=== PATIENT | male | born 1965 | race Caucasian/White ===

== ENCOUNTER 2021-12-13 16:41 | Outpatient (CLI) | payer BC, SELFPAY ==
--- NOTE | 2021-12-13 17:00 | CRLHL7_ITS ---
For Patients: As a result of the Century Cures Act, medical imaging exams and procedure reports are released immediately into your electronic medical record. You may view this report before your referring provider. If you have questions, please contact your health care provider. INDICATION: RULE OUT DVT, PAIN IN LEFT LOWER LEG TECHNIQUE: Ultrasound venous duplex left lower extremity. COMPARISON: None. FINDINGS: The left common femoral, superficial femoral, deep femoral, popliteal, posterior tibial, and greater saphenous veins are fully compressible normal waveforms. The contralateral right common femoral vein is also compressible with normal waveform. No masses evident. IMPRESSION: Normal ultrasound of the left lower extremity veins. Dictated by: Louis Dunbar MD @ 12/13/2021 18:48:28 (Electronically Signed)
== END 2021-12-13 16:42 | disposition home or self-care (01) ==
LOC: US 16:42
PROVIDERS: PCP Physician Assistant Medical; Visit Provider Physician Assistant Medical
DX: M79.605 Pain in left leg (principal)
CPT/HCPCS: 93971

== ENCOUNTER 2022-07-02 08:23 | Outpatient (CLI) | payer BC, SELFPAY | END 2022-07-02 08:24 | disposition home or self-care (01) | LOC: NFLDREF 13:51 | PROVIDERS: PCP Physician Assistant Medical; Referring Provider Physician Assistant Medical; Visit Provider Physician Assistant Medical | DX: E11.42 Type 2 diabetes mellitus with diabetic polyneuropathy (principal); E78.5 Hyperlipidemia, unspecified; E66.9 Obesity, unspecified; R60.9 Edema, unspecified; Z79.4 Long term (current) use of insulin | CPT/HCPCS: 80053; 80061; 82043; 82570; 84443 ==

== ENCOUNTER 2022-07-03 14:30 | Outpatient (CLI) | payer BC, SELFPAY | END 2022-07-03 14:31 | disposition home or self-care (01) | LOC: NFLDREF 07-04 02:41 | PROVIDERS: PCP Physician Assistant Medical; Referring Provider Physician Assistant Medical; Visit Provider Internal Medicine | DX: E11.9 Type 2 diabetes mellitus without complications (principal); E78.5 Hyperlipidemia, unspecified; E66.9 Obesity, unspecified | CPT/HCPCS: 82043; 82570 ==

== ENCOUNTER 2022-07-13 13:47 | Outpatient (CLI) | payer BC, SELFPAY | END 2022-07-13 13:48 | disposition home or self-care (01) | PROVIDERS: PCP Internal Medicine; Visit Provider Internal Medicine | DX: R60.9 Edema, unspecified (principal) | CPT/HCPCS: 93306 ==

== ENCOUNTER 2023-07-01 16:00 | Outpatient (CLI) | payer BC, SELFPAY | END 2023-07-01 16:01 | disposition home or self-care (01) | PROVIDERS: PCP Internal Medicine; Visit Provider Internal Medicine | DX: E11.9 Type 2 diabetes mellitus without complications (principal); Z79.4 Long term (current) use of insulin | CPT/HCPCS: 80053; 84443 ==

== ENCOUNTER 2024-05-20 07:57 | Outpatient (CLI) | payer BC, SELFPAY | END 2024-05-20 07:58 | disposition home or self-care (01) | PROVIDERS: PCP Internal Medicine; Visit Provider Internal Medicine | DX: Z11.4 Encounter for screening for human immunodeficiency virus [HIV] (principal) | CPT/HCPCS: 86703 ==

== ENCOUNTER 2024-05-21 07:37 | Outpatient (CLI) | payer BC, SELFPAY | END 2024-05-21 07:38 | disposition home or self-care (01) | LOC: NFLDREF 05-23 02:38 | PROVIDERS: PCP Internal Medicine; Referring Provider Internal Medicine; Visit Provider Internal Medicine | DX: Z11.3 Encounter for screening for infections with a predominantly sexual mode of transmission (principal) | CPT/HCPCS: 87491; 87591 ==

== ENCOUNTER 2024-08-05 05:30 | Emergency (ER) | payer BC, SELFPAY ==
--- OUTSIDE RECORDS SUMMARY | 2024-08-05 05:33 | XMS_ITS | Continuity of Care Document ---
Author Organization [place] [facility] Address [address] [place] [address] Assessment Encounter Date Assessment Date Assessment LastModified by Organization Details LastModified Time 06/25/2024 06/25/2024 ASSESSMENT: Patient is a good candidate for conservative care and the prognosis is for a favorable outcome that achieves the patients' goals. We discussed etiology, activity modifications, home care, and other treatment options. Initially, it is recommended that the patient receive in-office treatment 1 times per week for 8 weeks at which time a re-evaluation will be performed to determine an appropriate change in plan. Initially, treatment will focus on joint manipulation to restore range of motion and reduce pain. We will slowly progress to therapeutic exercises and activities to improve function, strength, and stability may also be used as warranted. If the patient is not responding as expected, more invasive procedures will be discussed along with a referral. All considerations above were discussed with the patient and questions answered to satisfaction. If the patient should have any additional questions, or should the condition evolve or worsen, the patient should not hesitate to contact our office. [email or web address] Not available 06/25/2024 18:50:12 Plan of Treatment Reminders Order Date Submit Date Provider Last Modified By Organization Details Last Modified Time Details Appointments None record ed. Lab None record ed. Referral None record ed. Procedures None record ed. Surgeries None record ed. Imaging None record ed. Medication Orders None record ed. Patient TargetsNo targets recorded. Patient InstructionsNo instructions recorded. Reason for Referral None Reported. Problems Name Problem SNOMED Code Status Onset Date Resolution Date Notes Provider Name and Address Organization Details Recorded Time Lumbar segmental dysfunction 389753840 Active 2024 Greg Ortiz DC [address], [place], [address] , [facility] 5 18:50:13 Low back pain 984326853 Active 2024 Greg Ortiz DC [address], [place], [address] , [facility] 5 18:50:13 Thoracic segmental dysfunction 644496250 Active 2024 Not Available [facility] 11:43:18 Somatic dysfunction of sacral spine 160663395 Active 2024 Greg Ortiz DC [address] [place] [address], [place], [address] , [facility] 18:50:13 Problem Notes None recorded. Procedures Surgical History Date Name Laterality Status Provider Name and Address Organization Details Recorded Time 01632: Spinal manipulation , 3 to 4 regions completed Greg Ortiz DC [address] [place] [address], [place], [address], [facility] 06/25/2024 18:50:13 Imaging Results None recorded. Procedure Notes None recorded. Medical Equipment None Reported. Vitals None Recorded Social History None recorded. Functional Status None recorded. Mental Status None recorded. Family History Nothing Reported. Medical History No medical history recorded. Past Encounters Encounter ID Performer Location Encounter Start Date Encounter Closed Date Diagnosis/Indication Diagnosis SNOMED-CT Code Diagnosis ICD10 Code Diagnosis Note [id number] Greg Ortiz DC [facility] [address] [place] [address] [place] [address] 06/25/2024 17:23:34 06/26/2024 18:30:05 Lumbar segmental dysfunction 690446399 M99.03 Low back pain 971482195 M54.50 Somatic dy sfunction of sacral spine 836610213 M99.04 Thoracic s egmental dysfunction 947485740 M99.02 Health Concerns Section Related Observation LastModified by Organization Detai ls LastModified Time None Recorded Concern Status LastModified by Organization Details LastModified Time None Recorded Payers Encounter Date Sequence Insurance Name Policy Number Policy Carrizales Covered Member ID Carrizales Member ID Guarantor Name 06/25/2024 1 [place] [id number] Martínez Morales [id number] Martínez Morales Notes Date Note Type Note Provider Name and Address Organization Details Recorded Time 06/25/2024 text/html HPI - Lumbar SpineReported bypatient.Location: left; With radiation to knee Quality:aching Severity:not changing Timing:morning Aggravating Factors:standing Alleviating Factors:ice Scot Olu Ortiz DC [address], [place], [address], [facility] 06/25/2024 18:50:37
--- OUTSIDE RECORDS SUMMARY | 2024-08-05 05:33 | XMS_ITS | Data Portability ---
Author Organization [place] - [facility] Address [address] [place] [address] Assessment Encounter Date Assessment Date Assessment LastModified [...] Organization Details Recorded Time Lumbar segmental dysfunction 202550542 Active 2024 Greg Ortiz DC [address], [place], [address] , [facility] 5 18:50:13 Low back pain 959202675 Active 2024 Greg Ortiz DC [address], [place], [address] , [facility] 5 18:50:13 Thoracic segmental dysfunction 932979321 Active 2024 Not Available [facility] 11:43:18 Somatic dysfunction of sacral spine 512767042 Active 2024 Greg Ortiz [address], [place], [address] , [facility] 5 18:50:13 Problem Notes None recorded. Procedures Surgical History Date Name Laterality Status Provider Name and Address Organization Details Recorded Time 95052: Spinal manipulation , 3 to 4 regions completed Greg Ortiz DC [address] [place] [address], [place], [address], [facility] 06/25/2024 18:50:13 Imaging Results None recorded. Procedure Notes None recorded. Medical Equipment None Reported. Vitals None Recorded Social History None recorded. Functional Status None recorded. Mental Status None recorded. Family History Nothing Reported. Medical History No medical history recorded. Past Encounters Encounter ID Performer Location Encounter Start Date Encounter Closed Date Diagnosis/Indication Diagnosis SNOMED-CT Code Diagnosis ICD10 Code Diagnosis Note [id number] Greg Ortiz DC [facility] [address] [place] [address] [place] [address] 06/25/2024 17:23:34 06/26/2024 18:30:05 Lumbar segmental dysfunction 035853129 M99.03 Low back pain 327593753 M54.50 Somatic dy sfunction of sacral spine 426860294 M99.04 Thoracic s egmental dysfunction 233794753 M99.02 Health Concerns Section Related Observation LastModified by Organization Detai ls LastModified Time None Recorded Concern Status LastModified by Organization Details LastModified Time None Recorded Advance Directives Directive None Recorded Payers Encounter Date Sequence Insurance Name Policy Number Policy Carrizales Covered Member ID Carrizales Member ID Guarantor Name 06/25/2024 1 [place]UN [place] ([place]) [id number] Martínez Morales [id number] Martínez Morales Notes Date Note Type Note Provider Name and Address Organization Details Recorded Time 06/25/2024 text/html HPI - Lumbar SpineReported bypatient.Location: left; With radiation to knee Quality:aching Severity:not changing Timing:morning Aggravating Factors:standing Alleviating Factors:ice Greg Ortiz DC [address], [place], [address], [facility] 06/25/2024 18:50:37
--- OUTSIDE RECORDS SUMMARY | 2024-08-05 05:34 | XMS_ITS | Continuity of Care Document ---
Author Organization [facility] actice Address [address] [address] Phone Care Team Providers Care Pcmh Specialist Name Role Phone Cleopatra [facility] Max KINCAID Unavailable Unava ilable Allergies, Adverse Reactions, Alerts Substance Reaction Status Criticality No Known Allergies Active No Inform ation Medications Medication Instructions Dosage Effective Dates (start - stop) Status Comments LOSARTAN POTASSIUM 50 MG TAB TAKE 1 TABLET BY ORAL ROUTE EVERY DAY 50 MG - Active PAXIL 20 MG TABLET TAKE 1 TABLET BY MOUTH EVERY DAY 20 MG - Active WELLBUTRIN XL 300 MG TABLET TAKE 1 TABLET BY MOUTH EVERY DAY 300 MG - Active Farxiga 10mg ORAL TABLET Take one tablet by mouth daily - Active METFORMIN HCL 500 MG TABLET TAKE 2 TABLETS BY MOUTH TWICE A DAY WITH MORNING AND EVENING MEAL 1000 MG - Active PRAVASTATIN SODIUM 40 MG TAB TAKE 1 TABLET BY MOUTH EVERY DAY 40 MG - Active One Touch Ultra System Kit Use as directed to test blood sugar - Active One Touch Ultra Test Strips Test blood sugar daily - Active One Touch Delica Lancets 33 gauge Test blood sugar daily - Active Lancets,Thin as directed - Active Zithromax Z-Kings 250 mg tablet take 2 tablet by oral route every day for 1 day then 1 tablet (250 mg) by oral route once daily for 4 days 500 MG - No Longer Active Medrol (Kings) 4 mg tablets in a dose pack Take as directed - No Longer Active doxycycline hyclate 100 mg tablet take 1 tablet by oral route 2 times every day 100 MG - No Longer Active Procedures Procedure Date Chest x-ray, two views RUBY PAST TIMELY FILING Echo Complete All Dopplers Office/outpatient visit,est, mod 2014 Chest x-ray, two views Office/outpatient visit,est, mod 2014 Assay, blood testosterone-L No Charge No Charge General health panel Venipuncture Lipid profile Glycosylated hemoglobin assay 5 Office/outpatient visit,est, mod 2013 Office/outpatient visit,est, mod 2013 Office/outpatient visit,est, mod 2013 Assay, Vitamin B-12 General health panel Glycosylated hemoglobin assay 4 Lipid profile No Charge No Charge Venipuncture Assay, fibrin degradation products Assay thyroid stimulating hormone Venipuncture Metabolic panel, comprehensive 14 Assay CPK in blood Assay, blood magnesium Assay creatine, MB fraction NATRIURETIC PEPTIDE (BNP) Assay, troponin, quantitative 4 Chest x-ray, two views Office/outpatient visit,est, mod 2013 EKG Infct antigen, influenza Office/outpatient visit,est, mod 2013 Office/outpatient visit,est, mod 2012 Venipuncture Metabolic panel, comprehensive 13 Automated hemogram (CBC)L Glycosylated hemoglobin assay 3 Office/outpatient visit,est, mod 2012 Venipuncture Metabolic panel, comprehensive 13 Automated hemogram (CBC)L Glycosylated hemoglobin assay 3 Office/outpatient visit,est, mod 2012 Office/outpatient visit,est, mod 2012 Rocephin 250 Mg Chest x-ray, two views Office/outpatient visit,est, mod 2012 Ft arch suprt premold longit Office/outpatient visit,est, mod 2012 Venipuncture Assay, blood testosterone-L Lipid profile Glycosylated hemoglobin assay 3 Office/outpatient visit,est, mod 2011 Office/outpatient visit,est, mod 2011 Assy, albumin, urine microalbm jose d-L Au Lipid profile No Charge Glycosylated hemoglobin assay 2 General health panel Venipuncture No Charge Assay, blood testosterone-L Assay, blood testosterone-L Assy, albumin, urine microalbm jose d-L Au Office/outpatient visit,new, mod 2011 Advance Directives Directive Yes / No Effective Date File Name No Information Encounters Encounter Description Practice Location Reason(s) For Visit Diagnoses Date Provider Providers Copied on Encounter [facility], [address] [facility], [place], [place], [id number], tel:[phone] ICC X Ray No Information 5 Cleopatra Santana. [address], [place], [place], [id number], [place]. tel:[phone] Referring Provider: Greg Sheth, [address] [facility], [place], [address]. tel:[phone] [facility], [address], [place], [place], [id number], tel:[phone] [facility] Cough (chief complaint) No Information 0 5 King Greg. [address] [place], [id number], [place]. tel:[phone] Referring Provider: Greg Sheth, [address], [place], [address]. tel:[phone] [facility], [address] [facility] [address] [place] [address], [id number], tel:[phone] [facility] No Information 3 5 King Greg. [address] [place], [id number], [place]. tel:[phone] Referring Provider: Greg Sheth, [address], [place], [address]. tel:[phone] [facility], [address] [facility] [address] [place] [address], [id number], tel:[phone] [facility] No Information 5 King Greg. [address] [place], [id number], [place]. tel:[phone] Referring Provider: Greg Sheth, [address], [place], [address]. tel:[phone] [facility], [address] [facility] [address] [place] [address], [id number], [place] tel:[phone] [facility] No Information 5 Cleopatra Santana. [address], [address] [facility], [place], [place], [id number], . tel:[phone] Referring Provider: Marshall Bustos MD, [address] [facility], [place], [address]. tel:[phone] Office/outpa tient visit,[facility], [address] [facility] [address] [place] [address], [id number], [place] tel:[phone] [facility] Follow Up of Hyperlipidem ia (chief complaint)co ugh (chief complaint) Unspecified essential hypertension Other and unspecified hyperlipidem iaUnspecifie d sleep apneaCoughDi abetes Mellitus Type 2, Uncomplicate d 5 King Greg. [address] [place] [address], [id number], [place]. tel:[phone] Referring Provider: Greg Sheth, [address] [place] [address], [address]. tel:[phone] [facility], [address] [facility] [address] [place] [address], [id number], tel:[phone] [facility] X Ray No Information 5 Cleopatra Santana. [address] [facility] [address] , [address] [place] [address], [id number], [place]. tel:[phone] Referring Provider: Greg Sheth, [address] [place] [address], [address]. tel:[phone] Office/outpa tient visit,[facility], [address] [place] [address], [id number], tel:[phone] [facility] Cough (chief complaint) Bronchitis, Acute 5 Kvng Macias. [address], [place], [place], [id number], [place]. [phone] Referring Provider: Colleen Ordonez, [address], [place], [address]. tel:[phone] [facility], [address] [place] [address], [id number], [place] tel:[phone] [facility] WO CMP NT ST UNCNTRLONG-T ERM USE MEDS [facility] 5 King Greg. [address] [place], [place], [id number], [place]. tel:[phone] Referring Provider: Greg Sheth, [address] [place], [address]. tel:[phone] Office/outpa tient visit,est, [facility], [address] [place] [address], [id number], [place] tel:[phone] [facility] Cough (chief complaint) Bronchitis, Acute 4 Kvng Macias. [address], [place], [place], [id number], [place]. tel:[phone] Referring Provider: Colleen Ordonez, [address], [place], [address]. [phone] Office/outpa tient visit,est, [facility], [address] [place] [address], [id number], [place] tel:[phone] [facility] Cold symptoms (chief complaint) Skin lesionAllerg ic rhinitis 4 King Greg. [address] [place], [id number], [place]. tel:[phone] Referring Provider: Greg Sheth, [address] [place], [address]. tel:[phone] [facility], [address] [place] [address], [id number], [place] tel:[phone] [facility] No Information 4 King Greg. [address] [place], [id number], [place]. tel:[phone] Referring Provider: Greg Sheth, [facility] [place], [address]. tel:[phone] Office/outpa tient visit,est, mod [facility], [address] [facility] [address] [place] [address], [id number], [place] tel:[phone] [facility] Follow Up of hyperlipidem ia (chief complaint) Diabetes Mellitus Type 2, Uncomplicate dHypovitamin osis D 4 King Greg. [facility] [place], [place], [id number], [place]. tel:[phone] Referring Provider: Greg Sheth, [address] [place] [address], [address]. tel:[phone] [facility], [address] [facility] [address], [id number], [place] tel:[phone] [facility] e DMII WO CMP UNCNTRLDHYPE RLIPIDEMIA NEC/NOSHYPER TENSION NOS 4 King Greg. [address] [place] [address], [id number], [place]. tel:[phone] Referring Provider: Greg Sheth, [address] [place] [address], [address]. tel:[phone] [facility], [address] [facility] [address] [place] [address], [id number], [place] tel:[phone] [facility] SHORTNESS OF BREATH 4 King Greg. [address] [place] [address], [id number], [place]. tel:[phone] Referring Provider: Greg Sheth, [address] [place] [address], [address]. tel:[phone] [facility], [address] [place] [address], [id number], [place] tel:[phone] [facility] X Ray No Information 4 Cleopatra Santana. [address], [place], [place], [id number], [place]. tel:[phone] Referring Provider: Greg Sheth, [address] [facility] [place], [address]. tel:[phone] Office/outpa tient visit,est, [facility], [address] [facility] [address] [place] [address], [id number], [place] tel:[phone] [facility] SOA (chief complaint) DyspneaCough Chest Tightness 4 King Greg. [facility] [place], [id number], [place]. tel:[phone] Referring Provider: Greg Sheth, [address] [place], [address]. tel:[phone] [facility], [address] [facility] [address] [place] [address], [id number], [place] tel:[phone] [facility] Brematthias hartmann COUGH 4 King Greg. [address] [place], [id number], [place]. tel:[phone] Referring Provider: Greg Sheth, [address] [place], [address]. tel:[phone] Office/outpa tient visit,est, [facility], [address] [place] [address] e [facility] [address] [place] [address], [id number], [place] tel:[phone] [facility] cough (chief complaint) Bronchitis, Acute 4 King Greg. [address] [place], [id number], [place]. tel:[phone] Referring Provider: Greg Sheth, [address], [place], [address]. tel:[phone] Office/outpa tient visit,est, mod [facility], [address], [place], [place], [id number], [place] tel:[phone] [facility] DM/lipids (chief complaint) Diabetes Mellitus, Adult Onset, Uncontrolled HYPERLIPIDEM IA NEC/NOSHyper tension, Unspecified Dec-0 3 King Greg. [address] [place], [place], [id number], [place]. tel:[phone] Referring Provider: Greg Sheth, [address], [place], [address]. tel:[phone] [facility], [address], [place], [place], [id number], [place] tel:[phone] [facility] [address] HYPERLIPIDEM IA NEC/NOSHYPER TENSION NOSDMII WO CMP UNCNTRLD 3 King Greg. [address] [place], [place], [id number], [place]. tel:[phone] Referring Provider: Greg Sheth, [address], [place], [address]. tel:[phone] [facility], [address], [place], [place], [id number], [place] tel:[phone] [facility] Hypertension , UnspecifiedH YPERLIPIDEMI A NEC/NOSDiabe scooter Mellitus, Adult Onset, Uncontrolled 3 King Greg. [address] [place], [place], [id number], [place]. tel:[phone] Referring Provider: Greg Sheth, [address] [place], [address]. tel:[phone] Office/outpa tient visit,est, [facility], [address] [place] [address] [address] [place] [address], [id number], tel:[phone] [facility] DM/lipids (chief complaint) Hypertension , UnspecifiedH YPERLIPIDEMI A NEC/NOSDiabe scooter Mellitus Type 2, Uncomplicate dObesity, Morbid 3 3 King Greg. [address] [place], [place], [id number], [place]. tel:[phone] Referring Provider: Greg Sheth, [address] [place] [address], [address]. tel:[phone] [facility], [address] [facility] [address] [place] [address], [id number], [place] tel:[phone] [facility] HYPERLIPIDEM IA NEC/NOSDMII WO CMP UNCNTRLD 3 King Greg. [address] [place], [place], [id number], [place]. tel:[phone] Referring Provider: Greg Sheth, [address] [place] [address], [place], [address]. tel:[phone] [facility], [address] [place], [place] [address]te [address] [place] [address], [id number], [place] tel:[phone] [facility] Diabetes Mellitus, Adult Onset, Uncontrolled HYPERLIPIDEM IA NEC/NOSHyper tension, Unspecified 3 King Greg. [address] [place], [place], [id number], [place]. tel:[phone] Referring Provider: Greg Sheth, [address] [place] [address], [address]. tel:[phone] Office/outpa tient visit,est, [facility], [address] [place] [address], [id number], [place] tel:[phone] [facility] upper respiratory infection (chief complaint) Upper Respiratory Infection, AcuteDiabete s Mellitus Type 2, Uncomplicate d 3 King Greg. [address] [place], [place], [id number], [place]. tel:[phone] Referring Provider: Greg Sheth, [facility] [place], [address]. tel:[phone] Office/outpa tient visit,[facility], [address] [facility] [address] [place] [address], [id number], [place] tel:[phone] [facility] bad cough (chief complaint) DyspneaBronc hitis, Acute 3 King Greg. [address] [place], [place], [id number], [place]. tel:[phone] Referring Provider: Greg Sheth, [address] [facility], [place], [address]. tel:[phone] [facility], [address] [facility] [address] [place] [address], [id number], tel:[phone] [facility] X Ray No Information 3 Cleopatra Santana. [address] [place] [address], [id number], [place]. tel:[phone] Referring Provider: Greg Sheth, [address] [place], [address]. tel:[phone] Office/outpa tient visit,[facility], [address] [facility] [address] [place] [address], [id number], [place] tel:[phone] [facility] left heel pain (chief complaint) PLANTAR FIBROMATOSIS DERMATOPHYTO SIS OF FOOTDiabetes Mellitus Type 2, Uncomplicate d 3 Jalen Grier. [address] [place] [address], [id number], [place]. [phone] Referring Provider: Cherrie Narayan, [address] [place] [address], [address]. tel:[phone] [facility], [address] [place], [place] [address] [address] [place] [address], [id number], [place] [phone] [facility] No Information 3 King Greg. [address] [place], [place], [id number], [place]. [phone] Office/outpa tient visit,est, mod [facility], [facility] [address] [facility] [address] [place] [address], [id number], [place] tel:[phone] [facility] hypertension (chief complaint)DM /lipids (chief complaint) Hypertension , UnspecifiedH YPERLIPIDEMI A NEC/NOSDMII NEURO UNCNTRLDBron hiltonis, [facility] 3 King Greg. [address] [place], [place], [id number], [place]. tel:[phone] Referring Provider: Greg Sheth, [address] [facility], [place], [address]. tel:[phone] [facility], [facility] [address] [place] [address], [id number], [place] tel:[phone] [facility] [address] HYPERLIPIDEM IA NEC/NOSDMII WO CMP UNCNTRLD 3 King Greg. [address] [place], [place], [id number], [place]. tel:[phone] Referring Provider: Greg Sheth, [address] [place], [address]. tel:[phone] Office/outpa tient visit,[facility], [address] [place] [address], [id number], tel:[phone] [facility] No Information 2 Pope Micky. [address] [place] [address], [id number], [place]. tel:[phone] Referring Provider: Greg Sheth, [address] [place] [address], [address]. [phone] Office/outpa tient visit,[facility], [address] [place] [address], [id number], tel:[phone] [facility] hypertension (chief complaint)DM /lipids (chief complaint) Hypertension , UnspecifiedH YPERLIPIDEMI A NEC/NOSDiabe scooter Mellitus, Adult Onset, Uncontrolled Sleep Apnea, ObstructiveC ORNS AND CALLOSITIES 2 King Greg. [address] [place], [place], [id number], [place]. tel:[phone] Referring Provider: Greg Sheth, [address] [place], [address]. tel:[phone] [facility], [address] [place] [address], [id number], [place] tel:[phone] [facility] Diabetes Mellitus, Adult Onset, Uncontrolled HYPERLIPIDEM IA NEC/NOSHyper tension, UnspecifiedA bnormal Liver Enzymes 2 King Greg. [address] [place], [id number], [place]. tel:[phone] Referring Provider: Greg Sehth, [address] [place] [address], [place], [address]. tel:[phone] [facility], [address] [facility] [address] [place] [address], [id number], [place] [phone] [facility] [address] DMII WO CMP UNCNTRLDHYPE RLIPIDEMIA NEC/NOSHYPER TENSION NOS King Greg. [address] [place], [place], [id number], [place]. tel:[phone] Referring Provider: Greg Sheth, [address] [place], [address]. tel:[phone] [facility], [address] [facility] [address] [place] [address], [id number], [place] tel:[phone] [facility] DMII WO CMP UNCNTRLDHYPE RLIPIDEMIA NEC/NOSHYPER TENSION NOS King Greg. [address] [place], [place], [id number], [place]. [phone] Referring Provider: Greg Sheth, [address] [place] [address], [address]. tel:[phone] [facility], [address] [place], [place] [address]te [address] [place] [address], [id number], [place] [phone] [facility] Care HYPERLIPIDEM IA NEC/NOSDiabe scooter Mellitus, Adult Onset, Uncontrolled DepressionHy pertension, Unspecified King Greg. [address] [place], [place], [id number], [place]. [phone] Referring Provider: Greg Sheth, [address] [place] [address], [address]. [phone] Office/outpa tient visit,new, mod [facility], [address] [facility], [place], [place], [id number], [place] tel:[phone] [facility] new patient visit (chief complaint) Hypertension , UnspecifiedH YPERLIPIDEMI A NEC/NOSDiabe scooter Mellitus, Adult Onset, Uncontrolled Sleep Apnea, ObstructiveD epressionHyp ertension, UnspecifiedH YPERLIPIDEMI A NEC/NOSDiabe scooter Mellitus Type 2, Uncomplicate dSleep Apnea, Obstructive 2 King Greg. [address] [place], [place], [id number], [place]. tel:[phone] Referring Provider: Greg Sheth, [address] [facility], [place], [address]. tel:[phone] Family History Family Member Type Diagnosis Age At Onset Mother Problem (finding) hypertension Maternal grandmother Problem (finding) Diabetes mellit us Immunizations Vaccine Date Status Comments PPV23 administered Source: New Imm unization Record Influenza vaccine cancelled Source: Ne w Immunization Record Influenza vaccine cancelled Source: Ne w Immunization Record Pneumo (2 yrs or older) (PPV23) pending Source: New Immuniza tion Record Payers Payer name Insurance type Covered green party ID Authoriza tion(s) Chana SHERMAN [id number] Social History Type Description Quantity Date Captured Comments Sex Male Smoking Status No Information Chief Complaint And Reason For Visit No Information Reason For Referral Reason For Referral No Information Plan Of Treatment Date Type Action Status Goal Pneumococcal Vaccine due Goal AST. Due on due Goal PSA. Due on due Goal TD Vaccine. Due on 15 due Goal H&P. Due on due Goal Depression screening. Due on due Goal Tdap. Due on due Goal Influenza vaccine. Due on due Goal ALT. Due on due Goal H&P. Due on due Goal Lipid Panel. Due on 014 due Goal AST. Due on due Goal TD Vaccine. Due on due Goal PSA. Due on due Goal TD Vaccine. Due on due Goal H&P. Due on due Goal ALT. Due on due Goal Lipid Panel. Due on due Goal AST. Due on due Goal PSA. Due on due Goal H&P. Due on due Goal PSA. Due on due Goal ALT. Due on due Goal TD Vaccine. Due on due Goal AST. Due on due Goal Lipid Panel. Due on due Goal TD Vaccine. Due on due Goal H&P. Due on due Goal ALT. Due on due Goal Lipid Panel. Due on due Goal AST. Due on due Goal TD Vaccine. Due on due Goal AST. Due on due Goal Lipid Panel. Due on due Goal ALT. Due on due Goal H&P. Due on due Goal TD Vaccine. Due on due Goal H&P. Due on due Goal H&P. Due on due Goal TD Vaccine. Due on due Goal TD Vaccine. Due on 13 due Goal H&P. Due on due Goal Lipid Panel. Due on 013 due Goal PSA. Due on due Goal ALT. Due on due Goal AST. Due on due Goal Colonoscopy. Due on 011 due Goal TD Vaccine. Due on 13 due Goal H&P. Due on due Goal Pneumococcal Vaccine. Due on due Unknown Immunization Pneumo (2 yrs or older) (PPV 23) ordered Future Order: Lab Order Complete Blood Count (CBC), Collected on: , Sent on: Sent Future Order: Lab Order Comprehe nsive Metabolic Panel (CMP), Collected on: , Sent on: Sent Future Order: Lab Order Lipid Pa julia (LIPID), Collected on: , Sent on: Sent Future Order: Lab Order Microalb umin (UMALB), Collected on: , Sent on: Sent Future Order: Lab Order Hemoglob in A1c (A1C), Collected on: , Sent on: Sent Future Order: Lab Order TSH (TSH ), Appointment on: , Sent on: Sent Future Order: Lab Order Complete Blood Count (CBC), Appointment on: , Sent on: Sent Future Order: Lab Order Comprehe nsive Metabolic Panel (CMP), Appointment on: , Sent on: Sent Future Order: Lab Order Hemoglob in A1c (A1C), Appointment on: , Sent on: Sent History Of Present Illness Encounter Date Complaint History Of Ese nt Illness Cough Follow Up of Hyperlipidemia The diabetes is controlled. The hyperlipidemia is controlled. Risk factors include age over 50, family history of DM, obesity, poor diet and sedentary life style. The patient is adhering to medication, follow-up, diet and exercise for their hyperlipidemia. The patient is adhering to medication, follow-up, diet and exercise for their diabetes management. The patient is managing diabetes with diet, fingerstick blood sugars, injected insulin and oral medication. Hyperlipidemia management includes improved diet, increased exercise and statins. Pertinent negatives include chest pain, claudication, constant hunger, constipation, diaphoresis, diarrhea, dizziness, dysesthesias, dyspnea, excessive thirst, foot ulcer, frequent infections, heartburn, hematuria, hypoglycemic episodes, impotence/erectile dysfunction, increased fatigue, joint pain, myalgia, nausea, nocturia, palpitations, polydipsia, polyuria, rash, slow healing, transient weakness, vision loss,'+ vomiting, weight gain and weight loss. Additional information: BP ontrolled, no weight loss, low salt diet, NAFLD, morbidly obese. cough Onset: 6 months ago. Severity: moderate. The patient describes the cough as hacking and persistent. It occurs persistently. The problem has not changed. There are no aggravating factors. There are no relieving factors. Associated symptoms include cough. Pertinent negatives include chills, dyspnea, dyspnea on exertion, epistaxis, fatigue, fever, heartburn, hemoptysis, hoarseness, nasal congestion, night sweats, pleuritic pain, post-nasal drainage, rhinitis, rhinorrhea, sinus pressure, sore throat, weight loss and wheezing. The patient does not have a history of allergies or asthma. Additional information: no rreflux symptoms. Cough Onset: 4 days ag o. The patient describes the cough as hacking and productive (of green sputum). It occurs persistently. The problem has become gradually worse. There are no aggravating factors. There are no relieving factors. Associated symptoms include chills, cough, dyspnea on exertion, fatigue, nasal congestion, post-nasal drainage, rhinitis, rhinorrhea and sinus pressure. Pertinent negatives include dyspnea, fever, sore throat and wheezing. Cough The patient desc ribes the cough as productive (of green sputum). It occurs persistently. The problem has become gradually worse. Context: allergies. Symptoms are aggravated by lying down. There are no relieving factors. Associated symptoms include cough, dyspnea, fatigue, hoarseness, rhinorrhea and sore throat. Pertinent negatives include chills, dyspnea on exertion, epistaxis, fever, heartburn, hemoptysis, nasal congestion, night sweats, pleuritic pain, post-nasal drainage, rhinitis, sinus pressure, weight loss and wheezing. Cold symptoms Onset: 2 weeks a go. Severity: mild-moderate. The patient describes the cough as moist and productive (of clear sputum). It occurs persistently. The problem has become gradually worse. There are no aggravating factors. There are no relieving factors. Associated symptoms include cough, dyspnea, dyspnea on exertion, fatigue, nasal congestion and post-nasal drainage. Pertinent negatives include chills, fever and hoarseness. The patient does not have a history of allergies or asthma. Additional information: Possibly has allergies also has lesion on scrotum. Follow Up of hyperlipidemia The diabetes is controlled. The hyperlipidemia is controlled. Risk factors include family history of DM, obesity, poor diet and sedentary life style. The patient is adhering to medication and follow-up for their hyperlipidemia. The patient is not adhering to diet and exercise for their hyperlipidemia. Other hyperlipidemia compliance information: {hpi_[email or web address]_compliance_oth er1} The patient is adhering to medication and follow-up for their diabetes management. The patient is not adhering to diet, exercise for their diabetes management. Other DM compliance information: {hpi_hyperlipidemia_DM_.txt_compliance_oth er2}. The patient is managing diabetes with diet and oral medication. Patient reports home glucose readings as an average of {home_glucose_mr_.glucAve}, a maximum of {home_glucose_mr_.glucMax} and a minimum of {home_glucose_mr_.glucMin}. Hyperlipidemia management includes improved diet, increased exercise and statins. Pertinent negatives include chest pain, claudication, constant hunger, constipation, diaphoresis, diarrhea, dizziness, dysesthesias, dyspnea, excessive thirst, foot ulcer, frequent infections, heartburn, hematuria, hypoglycemic episodes, impotence/erectile dysfunction, increased fatigue, joint pain, myalgia, nausea, nocturia, palpitations, polydipsia, polyuria, rash, slow healing, transient weakness, vision loss,'+ vomiting, weight gain and weight loss. Additional information: Bydureon SC weekly, BP conrolled, low salt diet and no EtOH. SOA SOA (comments) He has no more p urulent sputum but he still has thick white sputum and SOA and some chest ache or pressure. Cough is congested. He has T2DM but never a smoker. He is morbidly obese. cough Onset: 1 week ag o. Severity: mild-moderate. The patient describes the cough as moist and productive (of yellow sputum). It occurs persistently. The problem has become gradually worse. There are no aggravating factors. Relieving factors include OTC cough syrup. Associated symptoms include cough, fatigue and nasal congestion. Pertinent negatives include chills, dyspnea, dyspnea on exertion, epistaxis, fever, heartburn, hemoptysis, hoarseness, night sweats, pleuritic pain, post-nasal drainage, rhinitis, sinus pressure, sore throat, weight loss and wheezing. The patient does not have a history of allergies or asthma. DM/lipids Associated sympt oms include weight gain. Pertinent negatives include fatigue, pain and weight loss. Home blood pressure range is 140 systolic and 90 diastolic. DM/lipids (comments) 02/18 A1C 8 .1, he is on and off his meds and he is off his diet and he is not taking his BS at home at all. He is due for Opth visit. He denies any foot problems. Functional Status Date Functional Assessmen t No Information Instructions Date Instruction Additional Infor cassandra Increase Farxiga to 10mg daily. Check fasting home BS and record for your next visit. Maintain an ADA diet. Maintain an healthy weight. Maintain a cardiovascular exercise program. Follow up in 6 months with repeat routine blood work. Related to Diabetes Mellitus Type 2, Uncomplicated Doxycycline, Medrol, Mucinex, Pulmonary consult Related to Cough CPAP discussed Related to Unspe cified sleep apnea Continue current reg imen. follow a Low salt diet, maintain a healthy weight, maintain a cardiovascular exercise program, BP checks 2-3 x per week and bring record to next visit. Follow up in 6 months with repeat routine laboratory work up. Related to Unspecified essential hypertension Continue current reg imen. Follow a low cholesterol and low fat diet such as the Mediterranean diet. Maintain a healthy weight. Maintain a cardiovascular exercise program. Follow up in 6 months with routine laboratory work up. Related to Other and unspecified hyperlipidemia Treat with ceftin 50 0mg BID x 7 days. Recommend mucinex otc. Related to Bronchitis, Acute Treat with augmentin 875mg BID for 10 days. Recommend mucinex otc. Related to Bronchitis, Acute Vit D2 [id number] iu biw x 3 months R elated to Hypovitaminosis D Continue current reg imen and add Farxiga 5 mg daily. Check fasting home BS and record for your next visit. Maintain an ADA diet. Maintain an healthy weight. Maintain a cardiovascular exercise program. Follow up in 6 months with repeat routine blood work. Related to Diabetes Mellitus Type 2, Uncomplicated Probable AR, Nasonex bid and Zyrtec daily otc, FU prn or next routine visit Related to Allergic rhinitis probably due to skin folds, will try triple antibiotics first bid, FU if it doesn't clear up Related to Skin lesion Flu swab sent Related to Bron hitis, Acute Flu swab sent Related to Bron hitis, Acute Continue current medication Reviewed medications Follow exercise program Continue current medication Reviewed medications Take new medication as prescribe d Follow exercise program Continue current medication Reviewed medications Take new medication as prescribe d Continue current medication Reviewed medications Take new medication as prescribe d Follow exercise program Continue current medication Reviewed medications Follow exercise program Continue current medication Reviewed medications Follow exercise program Assessments Type Assessment Date No Information Patient Care Teams Name Effective Dates (start - stop) Status Members No Information
[2024-08-05 05:39] VITALS: BP 182/99; PULSE 75; PULSE 89; RESP 14; RESP 18; TEMP 36.8; O2SAT 99; BMI 35.3
--- NOTE | 2024-08-05 05:42 | ED_ITS ---
HPI - General Adult General Date Seen: 08/05/24 Chief complaint: Back Injury/Pain Stated complaint: tight chest, pain on center back Time Seen by Provider: 08/05/24 05:34 Source: patient Mode of arrival: ambulatory Limitations: no limitations History of Present Illness HPI narrative: Patient is a 59-year-old male history of diabetes had a benefit anemia presenting to the emergency department for back pain, left arm pain, head pain. Symptoms have been on and off for the past week. States that they dull ache located in the gets sharp in his upper mid back with some dull ache in his [address]. States the might be some mild pressure in the chest but hard to say definitively. No associated shortness of breath. Pain radiates to his left arm. Does not radiate up the jaw. No history of heart disease. Did have an episode lightheadedness about a week ago that lasted about 10 minutes. No further episodes of lightheadedness. Has never had symptoms like this before prior to this past week. Denies any lower extremity swelling. Denies any fevers, chills, headache, dizziness, abdominal pain. The pain came back overnight the he decided to come in to get checked out. No other concerns noted Related Data Home Medications ?Medication ?Instructions ?Recorded ?Confirmed albuterol sulfate 90 mcg/actuation 2 inhalation PRN 12/08/21 06/16/24 aerosol inhaler rosuvastatin 20 mg tablet 20 mg PO .Bedtime 12/08/21 06/16/24 Previous Rx's ?Medication ?Instructions ?Recorded lancets #100 ea 03/05/22 duloxetine 60 mg capsule,delayed 60 mg PO QDAY #90 caps 03/03/24 release blood-glucose meter (Contour Next #1 ea 03/30/24 EZ Meter kit) glipizide 10 mg tablet, extended 10 mg PO BID #180 tabs 06/08/24 release 24 hr metformin 500 mg tablet,extended 1,000 mg (2 x 500 mg) PO DAILY 06/08/24 release 24 hr #180 tabs semaglutide 1 mg/dose (4 mg/3 mL) 1 mg (0.75 mL) subcut QWEEK #3 mL 06/14/24 subcutaneous pen injector (Ozempic) blood sugar diagnostic (Contour #100 strips 06/16/24 Next Test Strips) tadalafil 10 mg tablet (Cialis) 10 mg PO QDAY #90 tabs 06/30/24 Allergies Allergy/AdvReac Type Severity Reaction Status Date / Time No Known Drug Allergies Allergy Verified 08/05/24 05:43 Review of Systems Status of ROS: Reports: 10 or more systems reviewed and unremarkable except as noted in History and below PFSH [facility] Medical History BPH (benign prostatic hyperplasia) ?N40.0 - Benign prostatic hyperplasia without lower urinary tract symptoms (ICD-10) Screening due ?Z13.9 - Encounter for screening, unspecified (ICD-10) History of essential hypertension ?Z86.79 - Personal history of other diseases of the circulatory system (ICD- 10) History of depression ?Z86.59 - Personal history of other mental and behavioral disorders (ICD-10) Surgical History History of tympanostomy (1965) ?Z98.890 - Other specified postprocedural states (ICD-10) History of cholecystectomy (2002) ?Z90.49 - Acquired absence of other specified parts of digestive tract (ICD- 10) Family History Mother Depression Anxiety Paternal Grandfather Diabetes Social History Narrative: , 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, no kids, does not exercise, non smoker, social drinker 1/week What is your current living situation?: I presently have a place to live Problems where you live: no known problems In the past 12 months, utilities in danger of being shut off: no In past 12 months, lack of transportation kept you from medical appts, meetings, work, or getting things needed for daily living: no In the past 12 mos, have been you worried that your food would run out before you had money to buy more?: never true In the past 12 mos, the food you bought just didn't last and you didn't have money to buy more?: never true Smoking Status: Never smoker Second hand tobacco smoke exposure: No How often do you have a drink containing alcohol: never AUDIT-C Alcohol total score: 0 Non-prescribed substance use: denies use How often does anyone, including family, friends and others, physically hurt you : never How often does anyone, including family, friends and others, insult or talk down to you: never How often does anyone, including family, friends and others, threaten you with harm: never How often does anyone, including family, friends and others, scream or curse at you: never Exam Narrative: Exam Narrative: Const: Well-nourished, Well-developed, in mild distress Eyes: PERRL, no conjunctival injection, and symmetrical lids HENT: Atraumatic external nose and ears. Moist mucous membranes. Neck: Symmetric, trachea midline, No thyromegaly. CVS: RRR, No murmurs or gallops. Peripheral pulses 2+ and equal in all extremities RESP: Unlabored respiratory effort. Clear to auscultation bilaterally. GI: Nontender/Nondistended, No rebound or guarding. MSK:Extremities w/o deformity, Normal Active ROM, no midline spine tenderness, no chest tenderness Skin: Warm, Dry. No rashes or lesions. Neuro: Normal Muscle tone, No focal neurological deficits. Psych: Awake, Alert, & Oriented x3. Appropriate mood and affect. Const: Vital Signs, click to edit/add: Vital Signs - 24 hr 08/05/24 05:39 08/05/24 05:39 08/05/24 06:00 Temperature 98.2 F 98.2 F Pulse Rate 75 68 Pulse Rate [Right Pulse Oximeter] 89 Respiratory Rate 18 14 18 Blood Pressure 182/99 H 160/92 H Blood Pressure [Ri ght Upper Arm] 182/99 H Pulse Oximetry 99 99 97 Oxygen Delivery Me thod Room Air 08/05/24 06:02 08/05/24 06:32 Temperature Pulse Rate 67 71 Pulse Rate [Right Pulse Oximeter] Respiratory Rate 18 18 Blood Pressure 160/90 H 156/92 H Blood Pressure [Ri ght Upper Arm] Pulse Oximetry 96 96 Oxygen Delivery Me thod Course Vital Signs Vital signs: Initial Vital Signs Temperature 98.2 F 08/05/24 05:39 Temperature Source Temporal Artery Scan 08/05/24 05:39 Pulse Rate 75 08/05/24 05:39 Pulse Rhythm Regular 08/05/24 05:39 Pulse Strength 3+ Normal 08/05/24 05:39 Respiratory Rate 18 08/05/24 05:39 Respiratory Effort Normal, Spontaneous, Non-Labored 08/05/24 05:39 Respiratory Depth Normal 08/05/24 05:39 Respiratory Pattern Normal 08/05/24 05:39 Blood Pressure 182/99 H 08/05/24 05:39 Blood Pressure Mean 126 H 08/05/24 05:39 Blood Pressure Position Sitting 08/05/24 05:39 Pulse Oximetry 99 08/05/24 05:39 Oxygen Delivery Method Room Air 08/05/24 05:39 Vital Signs Temperature 98.2 F 08/05/24 05:39 Pulse Rate 75 08/05/24 05:39 Respiratory Rate 18 08/05/24 05:39 Blood Pressure 182/99 H 08/05/24 05:39 Pulse Oximetry 99 08/05/24 05:39 Oxygen Delivery Method Room Air 08/05/24 05:39 Temperature 98.2 F 08/05/24 05:39 Pulse Rate 71 08/05/24 06:32 Respiratory Rate 18 08/05/24 06:32 Blood Pressure 156/92 H 08/05/24 06:32 Pulse Oximetry 96 08/05/24 06:32 Oxygen Delivery Method Room Air 08/05/24 05:39 Medical Decision Making MDM Narrative Medical decision making narrative: Patient is a 59-year-old male presenting for back and chest pain. The differential diagnosis of chest pain is broad and includes common etiologies such as musculoskeletal strain, GERD, pneumonia, etc. More serious etiologies considered include PE, coronary artery disease, pneumothorax, aortic dissection, aortic aneurysm. Will do a D-dimer but IV more concerned about aortic dissection that PE at this time. Overall the dissection seems unlikely though due to symptoms going on for over a week now. Will also do an EKG and troponin to look for signs of ACS. Chest x-ray ordered the for signs of pneumonia pneumothorax. Will also order CBC, BMP, COVID/flu/RSV, magnesium. Patient EKG lab work shows no concerning abnormalities and a repeat troponin at the 2 hours brian will be ordered. D-dimer within normal limits and my concerning for CT PE and aortic dissection is very low. Viral swabs are negative. Chest x-ray reviewed myself the radiologist shows no acute disease or any abnormalities. His heart score is 3 and put some the low risk category per the heart score. This time he is safe for discharge. Repeat troponin is normal. He is agreeable to this plan Lab Data Labs: Lab Results 08/05/24 08/05/24 08/05/24 Range/Units 05:45 05:46 05:50 WBC 8.64 (4.50-11.00) K/uL RBC 5.59 (4.30-5.90) m/uL Hgb 16.0 (13.5-17.5) gm/dL Hct 47.2 (37.0-53.0) % MCV 84 (80-100) fL MCH 29 (26-34) pg MCHC 34 (32-36) gm/dL RDW Coeff of Lacey 13.7 (11.5-15.5) % Plt Count 210 (140-440) K/uL Neut % (Auto) 59.4 (42.0-72.0) % Lymph % (Auto) 22.3 (20-44) % Boone % (Auto) 6.7 (0.0-11.0) % Eos % (Auto) 10.5 H (0.0-7.0) % Baso % (Auto) 0.9 (0.0-3.0) % Neut # (Auto) 5.12 (1.7-7.0) K/uL Lymph # (Auto) 1.93 (0.90-2.90) K/uL Boone # (Auto) 0.60 (0.00-0.90) K/UL Eos # (Auto) 0.90 H (0.00-0.50) K/uL Baso # (Auto) 0.08 (0.00-0.30) K/uL Abs Immat Gran (auto) 0.02 (0.00-0.30) K/uL Imm/Tot Granulo (auto) 0.2 % D-Dimer Quant (PE/DVT) 0.09 (0.00-0.50) ug/ml Sodium 139 (135-149) mmol/L Potassium 4.3 (3.6-5.1) mmol/L Chloride 103 (96-114) mmol/L Carbon Dioxide 29 (20-32) mmol/L Anion Gap 7 (7-15) mEq/L BUN 9 (7-30) mg/dL Creatinine 0.8 (0.5-1.5) mg/dL Estimated Creat Clear 107.78 Estimated GFR 101 ml/min Glucose 110 (60-115) mg/dL Calcium 9.1 (8.4-10.6) mg/dL Magnesium 2.0 (1.5-2.6) mg/dL Troponin I < 0.01 (0.01-0.04) ng/mL SARS-CoV-2 (PCR) Negative SARS-CoV-2 (Negative) Influenza Type A (PCR) Negative PCR FLU A (Negative) Influenza Type B (PCR) Negative PCR FLU B (Negative) RSV (PCR) Negative PCR RSV (Negative) POC Troponin I 0.01 (0.01-0.04) ng/ml 08/05/24 Range/Units 07:45 WBC (4.50-11.00) K/uL RBC (4.30-5.90) m/uL Hgb (13.5-17.5) gm/dL Hct (37.0-53.0) % MCV (80-100) fL MCH (26-34) pg MCHC (32-36) gm/dL RDW Coeff of Lacey (11.5-15.5) % Plt Count (140-440) K/uL Neut % (Auto) (42.0-72.0) % Lymph % (Auto) (20-44) % Boone % (Auto) (0.0-11.0) % Eos % (Auto) (0.0-7.0) % Baso % (Auto) (0.0-3.0) % Neut # (Auto) (1.7-7.0) K/uL Lymph # (Auto) (0.90-2.90) K/uL Boone # (Auto) (0.00-0.90) K/UL Eos # (Auto) (0.00-0.50) K/uL Baso # (Auto) (0.00-0.30) K/uL Abs Immat Gran (auto) (0.00-0.30) K/uL Imm/Tot Granulo (auto) % D-Dimer Quant (PE/DVT) (0.00-0.50) ug/ml Sodium (135-149) mmol/L Potassium (3.6-5.1) mmol/L Chloride (96-114) mmol/L Carbon Dioxide (20-32) mmol/L Anion Gap (7-15) mEq/L BUN (7-30) mg/dL Creatinine (0.5-1.5) mg/dL Estimated Creat Clear Estimated GFR ml/min Glucose (60-115) mg/dL Calcium (8.4-10.6) mg/dL Magnesium (1.5-2.6) mg/dL Troponin I (0.01-0.04) ng/mL SARS-CoV-2 (PCR) (Negative) Influenza Type A (PCR) (Negative) Influenza Type B (PCR) (Negative) RSV (PCR) (Negative) POC Troponin I 0.00 L (0.01-0.04) ng/ml Imaging Data Chest x-ray: Attestation: I have reviewed the pertinent imaging results. Radiologist's impression: Normal chest radiographs. Dictated by Carmen Velasquez MD @ 08/05/2024 6:46:05 AM ECG Data Attestation: I personally reviewed and interpreted this ECG as follows: Prior ECG tracings: not available for review Interpretation: Normal sinus rhythm with a rate of 68 beats per minute, normal intervals, normal axis, no ST or T-wave abnormalities. Discharge Plan Discharge Clinical Impression: Atypical chest pain, Acute midline thoracic back pain Patient Disposition: Home, Self-Care Condition: Stable Instructions: Back Pain (ED), Noncardiac Chest Pain (ED) Additional Instructions: I cannot say exactly what is causing your symptoms at this time but I do not see any emergent issues. If the symptoms persist I recommend close follow-up with your primary care provider. Return to the emergency department for new or worsening symptoms Prescriptions: No Action albuterol sulfate 90 mcg/actuation HFA aerosol inhaler 2 inhalation PRN rosuvastatin 20 mg tablet 20 mg PO .Bedtime (DME) Contour Next Test Strips Strip See Rx Instructions .ROUTE .COMPLEX Qty: 100 0RF Dose Instruction: TEST BLOOD SUGARS DAILY Rx Instructions: TEST BLOOD SUGARS DAILY (DME) lancets Misc See Rx Instructions .Route Qty: 100 3RF Rx Instructions: Test once daily. duloxetine 60 mg capsule,delayed release(DR/EC) 60 mg PO QDAY Qty: 90 1RF (DME) blood-glucose meter [Contour Next EZ Meter] Kit See Rx Instructions .Route Qty: 1 0RF Rx Instructions: As directed metformin 500 mg tablet extended release 24 hr 1,000 mg PO DAILY Qty: 180 0RF glipizide 10 mg tablet extended release 24hr 10 mg PO BID Qty: 180 0RF Ozempic 1 mg/dose (4 mg/3 mL) pen injector 1 mg subcut QWEEK Qty: 3 0RF tadalafil [Cialis] 10 mg tablet 10 mg PO QDAY Qty: 90 3RF Follow Up/Referrals: Austen Mcbride MD [Primary Care Provider] - Stand Alone Forms: [facility] Info Instructions
--- NOTE | 2024-08-05 05:45 | CRLHL7_ITS ---
For Patients: As a result of the Century Cures Act, medical imaging exams and procedure reports are released immediately into your electronic medical record. You may view this report before your referring provider. If you have questions, please contact your health care provider. INDICATION: Chest and upper back pain COMPARISON: None. TECHNIQUE: PA and lateral 2 view chest. FINDINGS: Lung volumes are moderate. No focal or diffuse opacities. No pulmonary edema. No pleural effusion. No pneumothorax. No pneumomediastinum. Normal cardiomediastinal silhouette. Bones: Normal for age. IMPRESSION: Normal chest radiographs. Dictated by Carmen Velasquez MD @ 08/05/2024 6:46:05 AM (Electronically Signed)
[2024-08-05 05:53] LABS: Basophils Absolute Auto 0.08 K/uL (0.00-0.30); Basophils Percent Auto 0.9 % (0.0-3.0); Eosinophils Percent Auto 10.5 % (0.0-7.0); Hematocrit 47.2 % (37.0-53.0); Immature Granulocytes Abs Auto 0.02 K/uL (0.00-0.30); Immature Granulocytes Pct Auto 0.2 %; Lymphocytes Absolute Auto 1.93 K/uL (0.90-2.90); Lymphocytes Percent Auto 22.3 % (20-44); Mean Corpuscular HGB Conc 34 gm/dL (32-36); Mean Corpuscular Hemoglobin 29 pg (26-34); Mean Corpuscular Volume 84 fL (80-100); Monocytes Percent Auto 6.7 % (0.0-11.0); Neutrophils Absolute Auto 5.12 K/uL (1.7-7.0); Neutrophils Percent Auto 59.4 % (42.0-72.0); Platelet Count* 210 K/uL (140-440); RDW Coefficient of Variation % 13.7 % (11.5-15.5); Red Blood Count 5.59 m/uL (4.30-5.90); White Blood Count* 8.64 K/uL (4.50-11.00)
[2024-08-05 05:56] LABS: Troponin, Point-of-Care* 0.01 ng/ml (0.01-0.04)
[2024-08-05 05:57] LABS: Slide Review Reflex No
[2024-08-05 06:00] VITALS: BP 160/92; PULSE 68; RESP 18; O2SAT 97
[2024-08-05 06:02] VITALS: BP 160/90; PULSE 67; RESP 18; O2SAT 96
[2024-08-05 06:07] LABS: Chloride* 103 mmol/L (96-114); Sodium* 139 mmol/L (135-149)
[2024-08-05 06:08] LABS: Potassium* 4.3 mmol/L (3.6-5.1)
[2024-08-05 06:10] LABS: Anion Gap 7 mEq/L (7-15); Blood Urea Nitrogen* 9 mg/dL (7-30); Carbon Dioxide* 29 mmol/L (20-32); Creatinine* 0.8 mg/dL (0.5-1.5); Est. Creatinine Clearance* 107.78; Estimated Glomerular Filt Rate 101 ml/min
[2024-08-05 06:11] LABS: Calcium* 9.1 mg/dL (8.4-10.6); Glucose* 110 mg/dL (60-115)
[2024-08-05 06:23] LABS: Troponin I* < 0.01 ng/mL (0.01-0.04)
[2024-08-05 06:27] LABS: D Dimer Quantitative* 0.09 ug/ml (0.00-0.50)
--- OUTSIDE RECORDS SUMMARY | 2024-08-05 06:28 | XMS_ITS | Continuity of Care Document ---
Author Organization [facility] actice Address [address] [address] Phone Care Team Providers Care Mammographer Name Role Phone Cleopatra MICHELLE [facility] CHERRY HILL Max KINCAID Unavailable Unava ilable Allergies, Adverse [...] Diagnoses Date Provider Providers Copied on Encounter [facility], [address] [facility] [address], [place], [place], [id number], tel:[phone] ICC X Ray No Information 5 Cleopatra Santana. [address], [place], [place], [id number], [place]. tel:[phone] Referring Provider: Greg Sheth, [address] [facility], [place], [address]. tel:[phone] [facility], [address], [place], [place], [id number], tel:[phone] [facility] Cough (chief complaint) No Information 0 5 King Greg. [address] [place], [id number], [place]. tel:[phone] Referring Provider: Greg Sheth, [address], [place], [address]. tel:[phone] [facility], [address] [facility] [address] [place] [address], [id number], tel:[phone] [facility] No Information 3 5 King Greg. [address] [place], [id number], [place]. tel:[phone] Referring Provider: Greg Sheth, [address], [place], [address]. tel:[phone] [facility], [address] [facility] [address] [place] [address], [id number], tel:[phone] [facility] No Information 5 King Greg. [address] [place], [id number], [place]. tel:[phone] Referring Provider: Greg Sheth, [address], [place], [address]. tel:[phone] [facility], [address] [facility] [address] [place] [address], [id number], [place] tel:[phone] [facility] No Information 5 Cleopatra Santana. [address], [address] [facility], [place], [place], [id number], . tel:[phone] Referring Provider: Marshall Bustos MD, [address] [facility], [place], [address]. tel:[phone] Office/outpa tient visit,Formerly [facility], [address] [facility] [address] [place] [address], [id number], [place] tel:[phone] [facility] Follow Up of Hyperlipidem ia (chief complaint)co ugh (chief complaint) Unspecified essential hypertension Other and unspecified hyperlipidem iaUnspecifie d sleep apneaCoughDi abetes Mellitus Type 2, Uncomplicate d 5 King Greg. [address] [place] [address], [id number], [place]. tel:[phone] Referring Provider: Greg Sheth, [address] [place] [address], [address]. tel:[phone] [facility], [address] [facility] [address] [place] [address], [id number], tel:[phone] [facility] X Ray No Information 5 Cleopatra Santana. [address] [facility] [address] , [address] [place] [address], [id number], [place]. tel:[phone] Referring Provider: Greg Sheth, [address] [place] [address], [address]. tel:[phone] Office/outpa tient visit,[facility]ly [facility], [address] [place] [address], [id number], tel:[phone] [facility] Cough (chief complaint) Bronchitis, Acute 5 Kvng Macias. [address], [place], [place], [id number], [place]. [phone] Referring Provider: Colleen Ordonez, [address], [place], [address]. tel:[phone] [facility], [address] [place] [address], [id number], [place] tel:[phone] [facility] o[facility] e DMII WO CMP NT ST UNCNTRLONG-T ERM USE MEDS [facility] 5 King Greg. [address] [place], [id number], [place]. tel:[phone] Referring Provider: Greg Sheth, [address] [place], [address]. tel:[phone] Office/outpa tient visit,est, [facility], [address] [place] [address], [id number], [place] tel:[phone] [facility] Cough (chief complaint) Bronchitis, Acute 4 Kvng Macias. [address], [place], [place], [id number], [place]. tel:[phone] Referring Provider: Colleen Ordonez, [address], [place], [address]. [phone] Office/outpa tient visit,est, [facility], [address] [place] [address], [id number], [place] tel:[phone] [facility] Cold symptoms (chief complaint) Skin lesionAllerg ic rhinitis 4 King Greg. [address] [place], [id number], [place]. tel:[phone] Referring Provider: Greg Sheth, [address] [place], [address]. tel:[phone] [facility], [address] [place] [address], [id number], [place] tel:[phone] [facility] No Information 4 King Greg. [address] [place], [id number], [place]. tel:[phone] Referring Provider: Greg Sheth, [facility] [place], [address]. tel:[phone] Office/outpa tient visit,est, mod [facility], [address] [facility] [address] [place] [address], [id number], [place] tel:[phone] [facility] Follow Up of hyperlipidem ia (chief complaint) Diabetes Mellitus Type 2, Uncomplicate dHypovitamin osis D 4 King Greg. [facility] [place], [id number], [place]. tel:[phone] Referring Provider: Greg Sheth, [address] [place] [address], [address]. tel:[phone] [facility], [address] [facility] e [address], [id number], [place] tel:[phone] [facility] e DMII WO CMP UNCNTRLDHYPE RLIPIDEMIA NEC/NOSHYPER TENSION NOS 4 King Greg. [address] [place] [address], [id number], [place]. tel:[phone] Referring Provider: Greg Sheth, [address] [place] [address], [address]. tel:[phone] [facility], [address] [facility] [address] [place] [address], [id number], [place] tel:[phone] [facility] SHORTNESS OF BREATH 4 King Greg. [address] [place] [address], [id number], [place]. tel:[phone] Referring Provider: Greg Sheth, [address] [place] [address], [address]. tel:[phone] [facility], [address] [place] [address], [id number], [place] tel:[phone] [facility] X Ray No Information 4 Cleopatra Santana. [address], [place], [place], [id number], [place]. tel:[phone] Referring Provider: Greg Sheth, [address] [facility] [place], [address]. tel:[phone] Office/outpa tient visit,est, [facility], [address] [facility] [address] [place] [address], [id number], [place] tel:[phone] [facility] SOA (chief complaint) DyspneaCough Chest Tightness 4 King Greg. [facility] [place], [id number], [place]. tel:[phone] Referring Provider: Greg Sheth, [address] [place], [address]. tel:[phone] [facility], [address] [facility] [address] [place] [address], [id number], [place] tel:[phone] [facility] Brematthias hartmann COUGH 4 King Greg. [address] [place], [id number], [place]. tel:[phone] Referring Provider: Greg Sheth, [address] [place], [address]. tel:[phone] Office/outpa tient visit,est, [facility], [address] [place] [address] e [facility] [address] [place] [address], [id number], [place] tel:[phone] [facility] cough (chief complaint) Bronchitis, Acute 4 King Greg. [address] [place], [id number], [place]. tel:[phone] Referring Provider: Greg Sheth, [address], [place], [address]. tel:[phone] Office/outpa tient visit,est, mod [facility], [address], [place], [place], [id number], [place] tel:[phone] [facility] DM/lipids (chief complaint) Diabetes Mellitus, Adult Onset, Uncontrolled HYPERLIPIDEM IA NEC/NOSHyper tension, Unspecified Dec-0 3 King Greg. [address] [place], [place], [id number], [place]. tel:[phone] Referring Provider: Greg Sheth, [address], [place], [address]. tel:[phone] [facility], [address], [place], [place], [id number], [place] tel:[phone] [facility] [address] HYPERLIPIDEM IA NEC/NOSHYPER TENSION NOSDMII WO CMP UNCNTRLD 3 King Greg. [address] [place], [place], [id number], [place]. tel:[phone] Referring Provider: Greg Sheth, [address], [place], [address]. tel:[phone] [facility], [address], [place], [place], [id number], [place] tel:[phone] [facility] Hypertension , UnspecifiedH YPERLIPIDEMI A NEC/NOSDiabe scooter Mellitus, Adult Onset, Uncontrolled 3 King Greg. [address] [place], [place], [id number], [place]. tel:[phone] Referring Provider: Greg Sheth, [address] [place], [address]. tel:[phone] Office/outpa tient visit,est, [facility], [address] [place] [address] [address] [place] [address], [id number], tel:[phone] [facility] DM/lipids (chief complaint) Hypertension , UnspecifiedH YPERLIPIDEMI A NEC/NOSDiabe scooter Mellitus Type 2, Uncomplicate dObesity, Morbid 3 3 King Greg. [address] [place], [place], [id number], [place]. tel:[phone] Referring Provider: Greg Sheth, [address] [place] [address], [address]. tel:[phone] [facility], [address] [facility] [address] [place] [address], [id number], [place] tel:[phone] [facility] HYPERLIPIDEM IA NEC/NOSDMII WO CMP UNCNTRLD 3 King Greg. [address] [place], [place], [id number], [place]. tel:[phone] Referring Provider: Greg Sheth, [address] [place] [address], [place], [address]. tel:[phone] [facility], [address] [place], [place] [address]te [address] [place] [address], [id number], [place] tel:[phone] [facility] Diabetes Mellitus, Adult Onset, Uncontrolled HYPERLIPIDEM IA NEC/NOSHyper tension, Unspecified 3 King Greg. [address] [place], [place], [id number], [place]. tel:[phone] Referring Provider: Greg Sheth, [address] [place] [address], [address]. tel:[phone] Office/outpa tient visit,est, [facility], [address] [place] [address], [id number], [place] tel:[phone] [facility] upper respiratory infection (chief complaint) Upper Respiratory Infection, AcuteDiabete s Mellitus Type 2, Uncomplicate d 3 King Greg. [address] [place], [place], [id number], [place]. tel:[phone] Referring Provider: Greg Sheth, [facility] [place], [address]. tel:[phone] Office/outpa tient visit,[facility]ly [facility], [address] [facility] [facility] [address] [place] [address], [id number], [place] tel:[phone] [facility] bad cough (chief complaint) DyspneaBronc hitis, Acute 3 King Greg. [address] [place], [place], [id number], [place]. tel:[phone] Referring Provider: Greg Sheth, [address] [facility], [place], [address]. tel:[phone] [facility], [address] [facility] [address] [place] [address], [id number], tel:[phone] [facility] X Ray No Information 3 Cleopatra Santana. [address] [place] [address], [id number], [place]. tel:[phone] Referring Provider: Greg Sheth, [address] [place], [address]. tel:[phone] Office/outpa tient visit,[facility], [address] [facility] [address] [place] [address], [id number], [place] tel:[phone] [facility] left heel pain (chief complaint) PLANTAR FIBROMATOSIS DERMATOPHYTO SIS OF FOOTDiabetes Mellitus Type 2, Uncomplicate d 3 Jalen Grier. [address] [place] [address], [id number], [place]. [phone] Referring Provider: Cherrie Narayan, [address] [place] [address], [address]. tel:[phone] [facility], [address] [place], [place] [address] [address] [place] [address], [id number], [place] [phone] [facility] No Information 3 King Greg. [address] [place], [place], [id number], [place]. [phone] Office/outpa tient visit,est, mod [facility], [facility] [address] [facility] [address] [place] [address], [id number], [place] tel:[phone] [facility] hypertension (chief complaint)DM /lipids (chief complaint) Hypertension , UnspecifiedH YPERLIPIDEMI A NEC/NOSDMII NEURO UNCNTRLDBron hiltonis, [facility] 3 King Greg. [address] [place], [place], [id number], [place]. tel:[phone] Referring Provider: Greg Sheth, [address] [facility], [place], [address]. tel:[phone] [facility], [facility] [address] [place] [address], [id number], [place] tel:[phone] [facility] [address] HYPERLIPIDEM IA NEC/NOSDMII WO CMP UNCNTRLD 3 King Gerg. [address] [place], [place], [id number], [place]. tel:[phone] Referring Provider: Greg Sheth, [address] [place], [address]. tel:[phone] Office/outpa tient visit,[facility]ly [facility], [address] [place] [address], [id number], tel:[phone] [facility] No Information 2 Pope Micky. [address] [place] [address], [id number], [place]. tel:[phone] Referring Provider: Greg Sheth, [address] [place], [place] [address], [address]. [phone] Office/outpa tient visit,[facility], [address] [place] [address], [id number], tel:[phone] [facility] hypertension (chief complaint)DM /lipids (chief complaint) Hypertension , UnspecifiedH YPERLIPIDEMI A NEC/NOSDiabe scooter Mellitus, Adult Onset, Uncontrolled Sleep Apnea, ObstructiveC ORNS AND CALLOSITIES 2 King Greg. [address] [place], [place], [id number], [place]. tel:[phone] Referring Provider: Greg Sheth, [address] [place], [address]. tel:[phone] [facility], [address] [place] [address], [id number], [place] tel:[phone] [facility] Diabetes Mellitus, Adult Onset, Uncontrolled HYPERLIPIDEM IA NEC/NOSHyper tension, UnspecifiedA bnormal Liver Enzymes 2 King Greg. [address] [place], [id number], [place]. tel:[phone] Referring Provider: Greg Sheth, [address] [place], [place] [address], [place], [address]. tel:[phone] [facility], [address] [facility] [address] [place] [address], [id number], [place] [phone] [facility] [address] DMII WO CMP UNCNTRLDHYPE RLIPIDEMIA NEC/NOSHYPER TENSION NOS King Greg. [address] [place], [place], [id number], [place]. tel:[phone] Referring Provider: Greg Sheth, [address] [place], [address]. tel:[phone] [facility], [address] [facility] [address] [place] [address], [id number], [place] tel:[phone] [facility] DMII WO CMP UNCNTRLDHYPE RLIPIDEMIA NEC/NOSHYPER TENSION NOS King Greg. [address] [place], [place], [id number], [place]. [phone] Referring Provider: Greg Sheth, [address] [place] [address], [address]. tel:[phone] [facility], [address] [place], [place] [address]te [address] [place] [address], [id number], [place] [phone] [facility] HYPERLIPIDEM IA NEC/NOSDiabe scooter Mellitus, Adult Onset, Uncontrolled DepressionHy pertension, Unspecified King Greg. [address] [place], [place], [id number], [place]. [phone] Referring Provider: Greg Sheth, [address] [place] [address], [address]. [phone] Office/outpa tient visit,new, mod [facility], [address] [facility] [facility], [place], [id number], [place] tel:[phone] [facility] new patient visit (chief complaint) Hypertension , UnspecifiedH YPERLIPIDEMI A NEC/NOSDiabe scooter Mellitus, Adult Onset, Uncontrolled Sleep Apnea, ObstructiveD epressionHyp ertension, UnspecifiedH YPERLIPIDEMI A NEC/NOSDiabe scooter Mellitus Type 2, Uncomplicate dSleep Apnea, Obstructive 2 King Greg. [address] [place], [place], [id number], [place]. tel:[phone] Referring Provider: Greg Sheth, [address] [facility], [place], [address]. tel:[phone] Family History Family Member Type Diagnosis Age [...] green party ID Authoriza tion(s) Chana SHERMAN [id number] Social History Type Description Quantity Date Captured [...] otc. Related to Bronchitis, Acute Vit D2 18517 iu biw x 3 months R elated [...]
[2024-08-05 06:31] LABS: PCR FLU A Negative PCR FLU A (Negative); PCR FLU B Negative PCR FLU B (Negative); PCR RSV Negative PCR RSV (Negative); SARS PCR* Negative SARS-CoV-2 (Negative)
[2024-08-05 06:32] VITALS: BP 156/92; PULSE 71; RESP 18; O2SAT 96
== END 2024-08-05 08:06 | disposition home or self-care (01) ==
PROVIDERS: Emergency Provider Student in an Organized Health Care Education/Training Program; PCP Internal Medicine
DX: R07.89 Other chest pain (principal); M54.6 Pain in thoracic spine
CPT/HCPCS: 36415; 71046; 80048; 83735; 84484; 85025; 85379; 87631; 93005; 99284; 99285

== ENCOUNTER 2024-08-12 08:06 | Outpatient (CLI) | payer BC, SELFPAY | END 2024-08-12 08:07 | disposition home or self-care (01) | PROVIDERS: PCP Internal Medicine; Visit Provider Internal Medicine | DX: N40.0 Benign prostatic hyperplasia without lower urinary tract symptoms (principal); R53.83 Other fatigue | CPT/HCPCS: 84270; 84402; 84403; 84443 ==

== ENCOUNTER 2024-08-25 12:45 | Outpatient (CLI) | payer BC, SELFPAY ==
--- NOTE | 2024-08-25 13:55 | W.ED.CHARTNO ---
ED Chart Note Chart Note Details Date: 08/25/24 Details: Patient was here for an exercise stress echo. Was getting his pre echo imaging done, require definity contrast. Immediately after the definity contrast, patient developed severe sharp lower back pain, had bilateral hip pain. This was limiting to his range of motion. He did walk around some in the room and was starting to randy and improve. Did review with him that unfortunately he would require definity to do this type of stress test, would need another dose of the definity for visualization of the echo images after exercise was done. Given the significant reaction he had with symptoms, limits to his ability to ambulate on a treadmill with his current symptoms, feel it is safest for him to not have this test in get another dose of definity. I will order a Lexiscan for him instead, we will try to get this done as quickly as possible. Did update his primary care provider Dr. Mcbride whom is in agreement with this plan. Patient's pre EKG was sinus rhythm, 76 beats per minute. No concerning ischemic change or infarct.
[2024-08-25] MEDS: PERFLUTREN LIPID MICROSPHERES 2 ML VIAL IVP (13:57)
== END 2024-08-25 13:58 | disposition home or self-care (01) ==
LOC: STRESS 12:46
PROVIDERS: PCP Internal Medicine; Visit Provider Internal Medicine
DX: R07.89 Other chest pain (principal); I34.0 Nonrheumatic mitral (valve) insufficiency
CPT/HCPCS: 93308; 93321; 93325; Q9957

== ENCOUNTER 2024-09-22 07:48 | Outpatient (CLI) | payer BC, SELFPAY ==
[2024-09-22] MEDS: SODIUM CHLORIDE 0.9 % (FLUSH) 10 ML SYRINGE IVF (09:21)
[2024-09-22] MEDS: REGADENOSON 0.4 MG/5 ML SYRINGE IVP (09:21)
[2024-09-22 09:29] VITALS: BP 138/85; PULSE 97; RESP 18
--- NOTE | 2024-09-22 10:57 | W.PM.STED ---
Stress Test Note Date Date of test: 09/22/24 Providers Primary care provider: Austen Mcbride Stress test physician: Jose Tatum Stress Test Note Stress test ordered: Lexiscan Indication for test: Chest pain Stress test medicine: Lexiscan Results discussion: Patient is a very nice individual who presents for the above test after discussion the risks benefits side effects like to proceed, cardiac stress test medical history form is reviewed, preliminary EKG shows a ventricular rate of 76 with a blood pressure 143/85. No acute ST wave changes are noted. There is some mild ST wave egg abnormalities notable. Standard Lexiscan infusion nonwalking protocol is done. Maximum heart rate was 186. He was asymptomatic during this test, with a maximum blood pressure 138/85. Review of the tracing shows no dysrhythmias, there is no ST wave changes suggestive of ischemia, or any other abnormality. Subjectively negative. Impression: Electrographic Linda negative Lexiscan, subjectively negative, Follow up suggested: Await nuclear imaging report, clinical correlation with this will be needed, patient left this testing facility in good condition. There were no complications
== END 2024-09-22 07:49 | disposition home or self-care (01) ==
LOC: STRESS 07:50
PROVIDERS: PCP Internal Medicine; Visit Provider Family Medicine
DX: R07.9 Chest pain, unspecified (principal)
CPT/HCPCS: 78452; 93016; 93017; A9500; J2785

== ENCOUNTER 2024-10-30 14:32 | Outpatient (CLI) | payer BC, SELFPAY | END 2024-10-30 14:33 | disposition home or self-care (01) | LOC: FRMREF 14:33 | PROVIDERS: PCP Internal Medicine; Visit Provider Nurse Practitioner Family | DX: M79.661 Pain in right lower leg (principal) | CPT/HCPCS: 85379 ==